=== PATIENT | male | born 1940 | race Two or more races ===

== ENCOUNTER 2019-02-13 07:01 | Day surgery (SDC) | payer OTHER ==
[2019-02-13] MEDS ORDERED: PROPOFOL 40 ML (08:47)
[2019-02-13] MEDS ORDERED: LIDOCAINE 2% (SDV) 5 ML INJ (08:47)
[2019-02-13] MEDS ORDERED: ALBUTEROL 0.083% (NEB) 2.5 MG/3 ML AMP HHN (09:30)
[2019-02-13] MEDS ORDERED: FENTAnyl 50 MCG/ML VIAL IV ×2 (09:30)
[2019-02-13] MEDS ORDERED: EPHEDrine 25 MG/5 ML SYG IV (09:30)
[2019-02-13] MEDS ORDERED: LABETALOL HCL 20MG INJ IV (09:30)
[2019-02-13] MEDS ORDERED: ONDANSETRON 4 MG INJ IV (09:30)
== END 2019-02-13 15:24 | disposition home or self-care (01) ==
LOC: GIL 07:01
DX: Z12.11 Encounter for screening for malignant neoplasm of colon (principal); K57.30 Diverticulosis of large intestine without perforation or abscess without bleeding; K64.8 Other hemorrhoids; K64.4 Residual hemorrhoidal skin tags
CPT/HCPCS: 45378